=== PATIENT | female | born 1970 | race Caucasian/White ===

== ENCOUNTER → 2018-01-03 | Outpatient (CLI) | payer OTHER | LOC: M.RAD 12:15 | DX: N64.4 Mastodynia (principal); R92.8 Other abnormal and inconclusive findings on diagnostic imaging of breast ==

== ENCOUNTER → 2018-01-04 | Outpatient (CLI) | payer OTHER | LOC: M.ULTRA 07:11 | DX: N60.01 Solitary cyst of right breast (principal); N63.20 Unspecified lump in the left breast, unspecified quadrant ==

== ENCOUNTER → 2019-11-15 | Outpatient (CLI) | payer OTHER | LOC: M.ULTRA 11-08 07:30 | DX: K76.0 Fatty (change of) liver, not elsewhere classified (principal) ==